=== PATIENT | male | born 1960 | race African-American/Black ===

== ENCOUNTER 2021-10-29 11:01 | Inpatient (IN) ==
[2021-10-29 11:48] LABS: Basophils % 0.1 % (0.0-0.8); Hematocrit 45.7 VOL% (42.0-52.0); Hemoglobin 15.9 GM/DL (14.0-18.0); Immature Granulocytes % 0.5 %; Immature Granulocytes Absolute 0.06 #; Lymphocytes % 16.4 % (21.2-54.2); Mean Corpuscular HGB Conc 34.8 GM/DL (32-36); Mean Corpuscular Volume 82.6 FL (87-102); Mean Platelet Volume 10.7 FL (9.6-12.0); Monocytes # 1.1 10*3/uL (0.11-0.8); NRBC # 0.02 10*3/uL; Platelet Count 134 T/CUMM (130-400); Red Blood Count 5.53 MC/CUMM (3.8-5.5); Red Cell Distribution Width 14.6 % (9.3-17.3)
[2021-10-29 12:16] LABS: Thyroid Stimulating Hormone 3.99 uIU/ml (0.358-3.74)
[2021-10-29 12:27] LABS: Alanine Aminotransferase 155 U/L (16-61); Albumin 2.9 G/DL (3.4-5.0); Alkaline Phosphatase 90 U/L (45-117); Aspartate Amino Transferase 208 U/L (0-37); Blood Urea Nitrogen 42 MG/DL (7-18); Calcium 9.8 MG/DL (8.5-10.1); Carbon Dioxide 22 MMOL/L (21-32); Chloride 95 MMOL/L (98-107); Glucose 110 MG/DL (74-106); Osmolality,Calculated 277.4 MOS/KG (273-304); Potassium 4.9 MMOL/L (3.5-5.1); Sodium 133 MMOL/L (136-145); Total Protein 6.3 G/DL (6.4-8.2)
[2021-10-29 12:40] LABS: INR 2.3; Partial Thromboplastin Time 29.2 SECS (23.7-32.9)
[2021-10-29] MEDS ORDERED: FUROSEMIDE 40 MG/4 ML VIAL IV STA (12:47)
[2021-10-29] MEDS ORDERED: SODIUM CHLORIDE 0.9% 1,000 ML IV STA (14:55)
[2021-10-29 15:23] LABS: Arterial Base Excess iSTAT 4 MMOL/L (-2.5-2.5); Arterial Bicarbonate iSTAT 26.7 MMOL/L (20-26); Arterial O2 Saturation iSTAT 94 % (95-100); Arterial PCO2 iSTAT 34 MM HG (35-48); Arterial PO2 iSTAT 65 MM HG (80-95); Arterial Total CO2 iSTAT 28 MMO/L (23-27); Arterial pH iSTAT 7.499 (7.35-7.45)
[2021-10-29] MEDS ORDERED: GLUCAGON 1 MG VIAL IM PRN (15:32)
[2021-10-29] MEDS ORDERED: ONDANSETRON 4 MG/2 ML VIAL IV PRN (15:32)
[2021-10-29] MEDS ORDERED: ACETAMINOPHEN 325 MG TABLET PO PRN (15:32)
[2021-10-29] MEDS ORDERED: ALBUTEROL 2.5 MG/3 ML NEB RESP TX PRN (15:32)
[2021-10-29 16:28] LABS: Barbiturates Screen,Urine Negative (Negative); Benzodiazepines Screen,Urine Negative (Negative); Cannabinoid Screen,Urine Negative (Negative); Opiate Screen,Urine Negative (Negative); Phencyclidine Screen,Urine Negative (Negative)
[2021-10-29 16:31] LABS: Bacteria,Urine Occasional /HPF (Few); Hyaline Casts,Urine 30 /LPF (0-3); Mucus,Urine Occasional /LPF (Occasional); Squamous Epithelial Cell,Urine Occasional /HPF (0-10)
[2021-10-29 16:34] LABS: Bilirubin,Urine Small mg/dL (Negative); Blood, Urine Trace mg/dL (Negative); Glucose,Urine (UA) 100 mg/dL (Negative); Ketones,Urine Negative (Negative); Nitrite,Urine Negative (Negative); Protein,Urine Trace mg/dL (Negative); Urine Appearance Clear (Clear); Urine Color Yellow (Yellow)
[2021-10-29] MEDS: FUROSEMIDE 40 MG/4 ML VIAL IV SCH (17:08)
[2021-10-29] MEDS: carvediloL 3.125 MG TABLET PO SCH (17:09)
[2021-10-29] MEDS ORDERED: DILTIAZEM 25 MG/5 ML VIAL IV ONE (18:30)
[2021-10-29] MEDS ORDERED: LORazepam 1 MG TABLET ONE (20:27)
[2021-10-29] MEDS: LORazepam 1 MG TABLET PO PRN (20:35)
[2021-10-30] MEDS ORDERED: FUROSEMIDE 40 MG/4 ML VIAL IV ONE (00:04)
[2021-10-30 03:53] LABS: PT Patient Result 20.9 SECS (10.1-12.1)
[2021-10-30 04:14] LABS: Risk Ratio 4.1; VLDL Cholesterol 18.4 MG/DL
[2021-10-30 04:45] LABS: Hepatitis B Core IgM Quant 0.14 Index; Hepatitis B Surface Ag Quant < 0.10 Index; Hepatitis B Surface Ag Result Non-Reactive (NonReactive); Hepatitis C Virus Ab Quant 0.03 Index; Hepatitis C Virus Ab Result Non-Reactive (NonReactive)
[2021-10-30] MEDS: FUROSEMIDE 40 MG/4 ML VIAL IV SCH ×2 (08:01→16:04)
[2021-10-30] MEDS: carvediloL 3.125 MG TABLET PO SCH ×2 (08:01→16:04)
[2021-10-30] MEDS: PANTOPRAZOLE 40 MG TABLET PO SCH (08:01)
[2021-10-30 08:25] LABS: Basophils % 0.1 % (0.0-0.8); Hematocrit 42.1 VOL% (42.0-52.0); Hemoglobin 14.8 GM/DL (14.0-18.0); Immature Granulocytes % 0.5 %; Immature Granulocytes Absolute 0.05 #; Lymphocytes # 1.4 10*3/uL (1.4-4.0); Lymphocytes % 13.2 % (21.2-54.2); Mean Corpuscular HGB Conc 35.2 GM/DL (32-36); Mean Corpuscular Volume 82.1 FL (87-102); Mean Platelet Volume 10.6 FL (9.6-12.0); Monocytes % 9.2 % (1.7-12.7); NRBC # 0.02 10*3/uL; Platelet Count 113 T/CUMM (130-400); Red Blood Count 5.13 MC/CUMM (3.8-5.5); Red Cell Distribution Width 14.9 % (9.3-17.3); White Blood Count 10.6 T/CUMM (4-12)
[2021-10-30 08:49] LABS: Albumin 2.8 G/DL (3.4-5.0); Bilirubin,Total 4.7 MG/DL (0.20-1.00); Calcium 9.5 MG/DL (8.5-10.1); Osmolality,Calculated 279.4 MOS/KG (273-304); Potassium 3.8 MMOL/L (3.5-5.1)
[2021-10-30 08:50] LABS: Arterial Base Excess iSTAT 5 MMOL/L (-2.5-2.5); Arterial O2 Saturation iSTAT 98 % (95-100); Arterial PCO2 iSTAT 51 MM HG (35-48); Arterial PO2 iSTAT 105 MM HG (80-95); Arterial Total CO2 iSTAT 33 MMO/L (23-27); Arterial pH iSTAT 7.389 (7.35-7.45)
[2021-10-30] MEDS ORDERED: ASPIRIN EC 81 MG TABLET PO SCH (09:00)
[2021-10-30] MEDS: ALBUTEROL/IPRATROPIUM 3 ML NEB RESP TX SCH ×2 (13:20→18:56)
[2021-10-30] MEDS ORDERED: APIXABAN 5 MG TABLET PO SCH (21:00)
[2021-10-30] MEDS: LORazepam 1 MG TABLET PO PRN (21:48)
[2021-10-30] MEDS: SPIRONOLACTONE 25 MG TABLET PO SCH (22:36)
[2021-10-31] MEDS: ALBUTEROL/IPRATROPIUM 3 ML NEB RESP TX SCH ×5 (00:27→19:30)
[2021-10-31 07:33] LABS: Basophils % 0.1 % (0.0-0.8); Eosinophils % 0.1 % (0.00-10.9); Hematocrit 39.8 VOL% (42.0-52.0); Immature Granulocytes % 0.4 %; Immature Granulocytes Absolute 0.04 #; Lymphocytes # 1.3 10*3/uL (1.4-4.0); Lymphocytes % 12.5 % (21.2-54.2); Mean Corpuscular HGB Conc 35.2 GM/DL (32-36); Mean Corpuscular Volume 82.6 FL (87-102); Mean Platelet Volume 10.8 FL (9.6-12.0); Monocytes # 0.9 10*3/uL (0.11-0.8); Monocytes % 8.6 % (1.7-12.7); NRBC # 0.02 10*3/uL; Neutrophils % 78.3 % (38.7-73.9); Red Blood Count 4.82 MC/CUMM (3.8-5.5); Red Cell Distribution Width 15.2 % (9.3-17.3)
[2021-10-31 07:38] LABS: Platelet Count 98 T/CUMM (130-400)
[2021-10-31 07:40] LABS: INR 1.6; PT Patient Result 17.1 SECS (10.1-12.1); Partial Thromboplastin Time 29.9 SECS (23.7-32.9)
[2021-10-31 07:50] LABS: Albumin 2.5 G/DL (3.4-5.0); Bilirubin,Total 3.4 MG/DL (0.20-1.00); Calcium 8.8 MG/DL (8.5-10.1); Osmolality,Calculated 279.2 MOS/KG (273-304); Potassium 3.6 MMOL/L (3.5-5.1); Total Protein 5.6 G/DL (6.4-8.2)
[2021-10-31] MEDS: carvediloL 3.125 MG TABLET PO SCH (08:13)
[2021-10-31] MEDS: SPIRONOLACTONE 25 MG TABLET PO SCH ×2 (08:13→20:10)
[2021-10-31] MEDS: FUROSEMIDE 40 MG/4 ML VIAL IV SCH ×3 (08:13→15:03)
[2021-10-31] MEDS: PANTOPRAZOLE 40 MG TABLET PO SCH (08:14)
[2021-10-31] MEDS ORDERED: METOPROLOL TARTRATE 5 MG/5 ML VIAL IV ONE (09:06)
[2021-10-31] MEDS: LORazepam 1 MG TABLET PO PRN (10:00)
[2021-10-31 10:08] LABS: Hepatitis B Core IgM Quant < 0.05 Index; Hepatitis B Surface Ag Quant 0.34 Index; Hepatitis B Surface Ag Result Non-Reactive (NonReactive); Hepatitis C Virus Ab Quant 0.07 Index; Hepatitis C Virus Ab Result Non-Reactive (NonReactive)
[2021-10-31] MEDS ORDERED: carvediloL 3.125 MG TABLET PO ONE (11:01)
[2021-10-31] MEDS ORDERED: DILTIAZEM 25 MG/5 ML VIAL IV ONE (12:13)
[2021-10-31] MEDS ORDERED: ENOXAPARIN 40 MG/0.4 ML SYRINGE SUBCUT SCH (12:30)
[2021-10-31] MEDS: DILTIAZEM INJ 100 MG in SODIUM CHLORIDE 0.9% 100 ML IV SCH (12:34)
[2021-10-31] MEDS: INSULIN LISPRO 100 UNIT/ML SUBCUT SCH ×3 (12:37→20:11)
[2021-10-31] MEDS ORDERED: DIAZEPAM 10 MG/2 ML SYRINGE IV ONE (13:38)
[2021-10-31 13:53] LABS: Arterial Base Excess iSTAT 3 MMOL/L (-2.5-2.5); Arterial Bicarbonate iSTAT 27.6 MMOL/L (20-26); Arterial O2 Saturation iSTAT 98 % (95-100); Arterial PCO2 iSTAT 40 MM HG (35-48); Arterial PO2 iSTAT 105 MM HG (80-95); Arterial Total CO2 iSTAT 29 MMO/L (23-27); Arterial pH iSTAT 7.451 (7.35-7.45)
[2021-10-31] MEDS: LACTULOSE 20 GM/30 ML UDCUP PO SCH ×2 (19:52→20:10)
[2021-10-31] MEDS: carvediloL 6.25 MG TABLET PO SCH (20:10)
[2021-10-31] MEDS: THIAMINE 100 MG TABLET PO SCH (20:10)
[2021-10-31] MEDS: FOLIC ACID 1 MG TABLET PO SCH (20:10)
[2021-10-31] MEDS: chlordiazePOXIDE 25 MG CAPSULE PO SCH (20:10)
[2021-10-31] MEDS: ASCORBIC ACID 500 MG TABLET PO SCH (20:10)
[2021-10-31] MEDS: DEXTROSE 10% 250 ML BAG IV PRN (20:51)
[2021-10-31 22:04] LABS: Arterial Base Excess iSTAT 4 MMOL/L (-2.5-2.5); Arterial Bicarbonate iSTAT 26.3 MMOL/L (20-26); Arterial O2 Saturation iSTAT 93 % (95-100); Arterial PCO2 iSTAT 33 MM HG (35-48); Arterial PO2 iSTAT 59 MM HG (80-95); Arterial Total CO2 iSTAT 27 MMO/L (23-27); Arterial pH iSTAT 7.515 (7.35-7.45)
[2021-11-01] MEDS: chlordiazePOXIDE 25 MG CAPSULE PO SCH ×4 (00:39→20:00)
[2021-11-01] MEDS: ALBUTEROL/IPRATROPIUM 3 ML NEB RESP TX SCH ×4 (01:20→19:55)
[2021-11-01 03:07] LABS: Arterial Base Excess iSTAT 5 MMOL/L (-2.5-2.5); Arterial Bicarbonate iSTAT 28.2 MMOL/L (20-26); Arterial O2 Saturation iSTAT 100 % (95-100); Arterial PCO2 iSTAT 36 MM HG (35-48); Arterial PO2 iSTAT 320 MM HG (80-95); Arterial Total CO2 iSTAT 29 MMO/L (23-27); Arterial pH iSTAT 7.505 (7.35-7.45)
[2021-11-01 05:41] LABS: INR 1.9; PT Patient Result 20.4 SECS (10.1-12.1)
[2021-11-01 05:48] LABS: Calcium 9.1 MG/DL (8.5-10.1); Osmolality,Calculated 277.4 MOS/KG (273-304)
[2021-11-01 05:52] LABS: Albumin 2.6 G/DL (3.4-5.0); Bilirubin,Direct 3.41 MG/DL (0.0-0.20); Bilirubin,Indirect 1.6 MG/DL (0.0-1.0); Total Protein 5.6 G/DL (6.4-8.2)
[2021-11-01] MEDS: DEXTROSE 10% 250 ML BAG IV PRN (05:54)
[2021-11-01] MEDS: INSULIN LISPRO 100 UNIT/ML SUBCUT SCH ×5 (06:32→20:00)
[2021-11-01 06:41] LABS: Basophils % 0.1 % (0.0-0.8); Hematocrit 40.4 VOL% (42.0-52.0); Hemoglobin 14.2 GM/DL (14.0-18.0); Immature Granulocytes % 0.9 %; Immature Granulocytes Absolute 0.15 #; Lymphocytes # 1.4 10*3/uL (1.4-4.0); Lymphocytes % 8.1 % (21.2-54.2); Mean Corpuscular HGB Conc 35.1 GM/DL (32-36); Mean Corpuscular Volume 84.3 FL (87-102); Mean Platelet Volume 11.6 FL (9.6-12.0); Monocytes # 1.3 10*3/uL (0.11-0.8); Monocytes % 7.4 % (1.7-12.7); NRBC # 0.06 10*3/uL; Neutrophils % 83.5 % (38.7-73.9); Platelet Count 84 T/CUMM (130-400); Red Blood Count 4.79 MC/CUMM (3.8-5.5); Red Cell Distribution Width 15.8 % (9.3-17.3); White Blood Count 17.3 T/CUMM (4-12)
[2021-11-01] MEDS: LACTULOSE 20 GM/30 ML UDCUP PO SCH ×3 (11:41→20:00)
[2021-11-01] MEDS: ASPIRIN EC 81 MG TABLET PO SCH ×2 (11:42→13:43)
[2021-11-01] MEDS: SPIRONOLACTONE 25 MG TABLET PO SCH ×3 (11:42→20:00)
[2021-11-01] MEDS: THIAMINE 100 MG TABLET PO SCH ×3 (11:43→20:00)
[2021-11-01] MEDS: MULTIVITAMIN (BEROCCA) TABLET PO SCH ×2 (11:43→13:41)
[2021-11-01] MEDS: carvediloL 6.25 MG TABLET PO SCH ×3 (11:43→20:00)
[2021-11-01] MEDS: ASCORBIC ACID 500 MG TABLET PO SCH ×3 (11:43→20:00)
[2021-11-01] MEDS: PANTOPRAZOLE 40 MG TABLET PO SCH ×2 (11:43→13:41)
[2021-11-01] MEDS: DILTIAZEM INJ 100 MG in SODIUM CHLORIDE 0.9% 100 ML IV SCH (12:45)
[2021-11-01] MEDS: cefTRIAXone 2,000 MG in SODIUM CHLORIDE 0.9% 100 ML IV SCH (13:43)
[2021-11-01] MEDS: FOLIC ACID 1 MG TABLET PO SCH (20:00)
[2021-11-02] MEDS: ALBUTEROL/IPRATROPIUM 3 ML NEB RESP TX SCH ×4 (00:45→19:25)
[2021-11-02] MEDS: chlordiazePOXIDE 25 MG CAPSULE PO SCH ×4 (01:38→21:32)
[2021-11-02] MEDS: LACTULOSE 20 GM/30 ML UDCUP PO SCH ×5 (01:38→21:53)
[2021-11-02 03:15] LABS: Basophils % 0.1 % (0.0-0.8); Eosinophils % 0.3 % (0.00-10.9); Hematocrit 40.6 VOL% (42.0-52.0); Hemoglobin 14.1 GM/DL (14.0-18.0); Immature Granulocytes % 0.5 %; Immature Granulocytes Absolute 0.05 #; Lymphocytes # 0.8 10*3/uL (1.4-4.0); Lymphocytes % 7.8 % (21.2-54.2); Mean Corpuscular HGB Conc 34.7 GM/DL (32-36); Mean Corpuscular Volume 84.1 FL (87-102); Mean Platelet Volume 10.4 FL (9.6-12.0); Monocytes # 0.9 10*3/uL (0.11-0.8); Monocytes % 7.9 % (1.7-12.7); NRBC # 0.04 10*3/uL; Neutrophils % 83.4 % (38.7-73.9); Platelet Count 96 T/CUMM (130-400); Red Blood Count 4.83 MC/CUMM (3.8-5.5); Red Cell Distribution Width 16.2 % (9.3-17.3); White Blood Count 10.7 T/CUMM (4-12)
[2021-11-02 03:25] LABS: INR 1.5
[2021-11-02 03:38] LABS: Albumin 2.3 G/DL (3.4-5.0); Bilirubin,Total 3.5 MG/DL (0.20-1.00); Calcium 8.7 MG/DL (8.5-10.1); Osmolality,Calculated 290.5 MOS/KG (273-304); Phosphorous 2.9 MG/DL (2.5-4.9); Potassium 3.8 MMOL/L (3.5-5.1); Total Protein 5.4 G/DL (6.4-8.2)
[2021-11-02 03:58] LABS: Arterial Base Excess iSTAT 10 MMOL/L (-2.5-2.5); Arterial Bicarbonate iSTAT 33.6 MMOL/L (20-26); Arterial O2 Saturation iSTAT 97 % (95-100); Arterial PCO2 iSTAT 41 MM HG (35-48); Arterial PO2 iSTAT 83 MM HG (80-95); Arterial Total CO2 iSTAT 35 MMO/L (23-27); Arterial pH iSTAT 7.518 (7.35-7.45)
[2021-11-02] MEDS ORDERED: METOPROLOL TARTRATE 5 MG/5 ML VIAL IV ONE (04:33)
[2021-11-02] MEDS: SPIRONOLACTONE 25 MG TABLET PO SCH ×2 (08:22→21:32)
[2021-11-02] MEDS: INSULIN LISPRO 100 UNIT/ML SUBCUT SCH ×4 (08:22→21:33)
[2021-11-02] MEDS: carvediloL 6.25 MG TABLET PO SCH ×2 (08:22→21:32)
[2021-11-02] MEDS: PANTOPRAZOLE 40 MG TABLET PO SCH (08:22)
[2021-11-02] MEDS: THIAMINE 100 MG TABLET PO SCH ×2 (08:22→21:32)
[2021-11-02] MEDS: MULTIVITAMIN (BEROCCA) TABLET PO SCH (08:22)
[2021-11-02] MEDS: ASCORBIC ACID 500 MG TABLET PO SCH ×2 (08:23→21:32)
[2021-11-02] MEDS: ASPIRIN EC 81 MG TABLET PO SCH (08:38)
[2021-11-02] MEDS ORDERED: POLYETHYLENE GLYCOL POWDER 17 GM PACK PO SCH (09:00)
[2021-11-02] MEDS: DILTIAZEM INJ 100 MG in SODIUM CHLORIDE 0.9% 100 ML IV SCH (12:54)
[2021-11-02] MEDS: cefTRIAXone 2,000 MG in SODIUM CHLORIDE 0.9% 100 ML IV SCH (14:43)
[2021-11-02] MEDS: FOLIC ACID 1 MG TABLET PO SCH (21:32)
[2021-11-03] MEDS: ALBUTEROL/IPRATROPIUM 3 ML NEB RESP TX SCH ×4 (00:35→18:57)
[2021-11-03] MEDS: chlordiazePOXIDE 25 MG CAPSULE PO SCH ×4 (02:06→20:49)
[2021-11-03] MEDS: LACTULOSE 20 GM/30 ML UDCUP PO SCH ×4 (02:07→20:50)
[2021-11-03 06:03] LABS: Basophils % 0.1 % (0.0-0.8); Eosinophils # 0.1 10*3/uL (0.0-0.87); Eosinophils % 1.1 % (0.00-10.9); Hematocrit 39.3 VOL% (42.0-52.0); Hemoglobin 13.7 GM/DL (14.0-18.0); Immature Granulocytes % 0.5 %; Immature Granulocytes Absolute 0.04 #; Lymphocytes # 1.1 10*3/uL (1.4-4.0); Lymphocytes % 13.9 % (21.2-54.2); Mean Corpuscular HGB Conc 34.9 GM/DL (32-36); Mean Platelet Volume 11.6 FL (9.6-12.0); Monocytes # 0.7 10*3/uL (0.11-0.8); Monocytes % 9.3 % (1.7-12.7); NRBC # 0.02 10*3/uL; Neutrophils % 75.1 % (38.7-73.9); Platelet Count 90 T/CUMM (130-400); Red Blood Count 4.68 MC/CUMM (3.8-5.5); Red Cell Distribution Width 16.1 % (9.3-17.3); White Blood Count 7.9 T/CUMM (4-12)
[2021-11-03 06:21] LABS: Calcium 9.4 MG/DL (8.5-10.1); Potassium 3.5 MMOL/L (3.5-5.1)
[2021-11-03] MEDS: INSULIN LISPRO 100 UNIT/ML SUBCUT SCH ×4 (08:35→20:59)
[2021-11-03] MEDS: MULTIVITAMIN (BEROCCA) TABLET PO SCH (09:22)
[2021-11-03] MEDS: ASPIRIN EC 81 MG TABLET PO SCH (09:22)
[2021-11-03] MEDS: SPIRONOLACTONE 25 MG TABLET PO SCH ×2 (09:22→20:50)
[2021-11-03] MEDS: APIXABAN 5 MG TABLET PO SCH ×2 (09:22→20:50)
[2021-11-03] MEDS: carvediloL 6.25 MG TABLET PO SCH ×2 (09:22→20:50)
[2021-11-03] MEDS: PANTOPRAZOLE 40 MG TABLET PO SCH (09:23)
[2021-11-03] MEDS: ASCORBIC ACID 500 MG TABLET PO SCH ×2 (09:23→20:50)
[2021-11-03] MEDS: THIAMINE 100 MG TABLET PO SCH ×2 (09:23→20:50)
[2021-11-03 09:24] LABS: Anisocytosis 1+; Ovalocytes Few; Platelet Estimate Adequate; Target Cells Few
[2021-11-03] MEDS: cefTRIAXone 2,000 MG in SODIUM CHLORIDE 0.9% 100 ML IV SCH (16:19)
[2021-11-03] MEDS: FOLIC ACID 1 MG TABLET PO SCH (20:50)
[2021-11-04] MEDS: ALBUTEROL/IPRATROPIUM 3 ML NEB RESP TX SCH ×4 (00:33→19:13)
[2021-11-04] MEDS: chlordiazePOXIDE 25 MG CAPSULE PO SCH ×4 (02:42→20:46)
[2021-11-04] MEDS: LACTULOSE 20 GM/30 ML UDCUP PO SCH ×4 (02:42→20:46)
[2021-11-04 05:55] LABS: Eosinophils # 0.1 10*3/uL (0.0-0.87); Eosinophils % 1.4 % (0.00-10.9); Hematocrit 41.5 VOL% (42.0-52.0); Hemoglobin 14.2 GM/DL (14.0-18.0); Immature Granulocytes % 0.4 %; Immature Granulocytes Absolute 0.03 #; Lymphocytes # 1.2 10*3/uL (1.4-4.0); Lymphocytes % 17.3 % (21.2-54.2); Mean Corpuscular HGB Conc 34.2 GM/DL (32-36); Mean Corpuscular Volume 84.5 FL (87-102); Mean Platelet Volume 11.9 FL (9.6-12.0); Monocytes # 0.6 10*3/uL (0.11-0.8); Monocytes % 8.8 % (1.7-12.7); NRBC # 0.02 10*3/uL; Neutrophils % 72.1 % (38.7-73.9); Platelet Count 96 T/CUMM (130-400); Red Blood Count 4.91 MC/CUMM (3.8-5.5); Red Cell Distribution Width 16.2 % (9.3-17.3)
[2021-11-04 06:12] LABS: Calcium 9.1 MG/DL (8.5-10.1); Osmolality,Calculated 291.4 MOS/KG (273-304); Potassium 3.6 MMOL/L (3.5-5.1)
[2021-11-04 07:15] LABS: Hypochromia 1+; Platelet Estimate Adequate; Target Cells Slight
[2021-11-04] MEDS: INSULIN LISPRO 100 UNIT/ML SUBCUT SCH ×4 (09:38→20:47)
[2021-11-04] MEDS: ASPIRIN EC 81 MG TABLET PO SCH (09:38)
[2021-11-04] MEDS: SPIRONOLACTONE 25 MG TABLET PO SCH ×2 (09:38→20:46)
[2021-11-04] MEDS: MULTIVITAMIN (BEROCCA) TABLET PO SCH (09:39)
[2021-11-04] MEDS: THIAMINE 100 MG TABLET PO SCH ×2 (09:39→20:47)
[2021-11-04] MEDS: carvediloL 6.25 MG TABLET PO SCH ×2 (09:39→20:47)
[2021-11-04] MEDS: ASCORBIC ACID 500 MG TABLET PO SCH ×2 (09:39→20:46)
[2021-11-04] MEDS: APIXABAN 5 MG TABLET PO SCH ×2 (09:39→20:47)
[2021-11-04] MEDS: PANTOPRAZOLE 40 MG TABLET PO SCH (09:39)
[2021-11-04] MEDS: cefTRIAXone 2,000 MG in SODIUM CHLORIDE 0.9% 100 ML IV SCH (15:23)
[2021-11-04] MEDS: FOLIC ACID 1 MG TABLET PO SCH (20:46)
[2021-11-05] MEDS: ALBUTEROL/IPRATROPIUM 3 ML NEB RESP TX SCH ×4 (00:13→19:16)
[2021-11-05] MEDS: LACTULOSE 20 GM/30 ML UDCUP PO SCH ×4 (02:37→17:51)
[2021-11-05 05:09] LABS: Basophils % 0.1 % (0.0-0.8); Eosinophils # 0.1 10*3/uL (0.0-0.87); Eosinophils % 1.3 % (0.00-10.9); Hematocrit 41.8 VOL% (42.0-52.0); Hemoglobin 14.1 GM/DL (14.0-18.0); Immature Granulocytes % 0.6 %; Immature Granulocytes Absolute 0.04 #; Lymphocytes # 1.2 10*3/uL (1.4-4.0); Lymphocytes % 18.1 % (21.2-54.2); Mean Corpuscular HGB Conc 33.7 GM/DL (32-36); Mean Corpuscular Volume 85.3 FL (87-102); Mean Platelet Volume 11.3 FL (9.6-12.0); Monocytes # 0.6 10*3/uL (0.11-0.8); Monocytes % 8.5 % (1.7-12.7); NRBC # 0.03 10*3/uL; Neutrophils % 71.4 % (38.7-73.9); Platelet Count 112 T/CUMM (130-400); Red Cell Distribution Width 16.6 % (9.3-17.3); White Blood Count 6.7 T/CUMM (4-12)
[2021-11-05 05:14] LABS: INR 1.3; PT Patient Result 14.6 SECS (10.1-12.1)
[2021-11-05 05:23] LABS: Calcium 9.8 MG/DL (8.5-10.1); Osmolality,Calculated 291.3 MOS/KG (273-304); Potassium 3.5 MMOL/L (3.5-5.1)
[2021-11-05 05:31] LABS: Albumin 2.3 G/DL (3.4-5.0); Bilirubin,Direct 1.91 MG/DL (0.0-0.20); Bilirubin,Indirect 0.6 MG/DL (0.0-1.0); Bilirubin,Total 2.5 MG/DL (0.20-1.00); Total Protein 5.9 G/DL (6.4-8.2)
[2021-11-05] MEDS: INSULIN LISPRO 100 UNIT/ML SUBCUT SCH ×4 (09:56→22:15)
[2021-11-05] MEDS: SPIRONOLACTONE 25 MG TABLET PO SCH ×2 (09:57→21:09)
[2021-11-05] MEDS: ASPIRIN EC 81 MG TABLET PO SCH (09:57)
[2021-11-05] MEDS: APIXABAN 5 MG TABLET PO SCH ×2 (09:57→21:11)
[2021-11-05] MEDS: MULTIVITAMIN (BEROCCA) TABLET PO SCH (09:57)
[2021-11-05] MEDS: carvediloL 6.25 MG TABLET PO SCH ×2 (09:57→21:11)
[2021-11-05] MEDS: PANTOPRAZOLE 40 MG TABLET PO SCH (09:58)
[2021-11-05] MEDS: ASCORBIC ACID 500 MG TABLET PO SCH ×2 (09:58→21:10)
[2021-11-05] MEDS: THIAMINE 100 MG TABLET PO SCH ×2 (09:58→21:11)
[2021-11-05] MEDS: chlordiazePOXIDE 25 MG CAPSULE PO SCH ×3 (09:59→21:11)
[2021-11-05] MEDS: cefTRIAXone 2,000 MG in SODIUM CHLORIDE 0.9% 100 ML IV SCH (14:04)
[2021-11-05] MEDS: FOLIC ACID 1 MG TABLET PO SCH (21:09)
[2021-11-05] MEDS ORDERED: DILTIAZEM 25 MG/5 ML VIAL IV ONE ×2 (23:20→23:45)
[2021-11-06] MEDS: LACTULOSE 20 GM/30 ML UDCUP PO SCH ×4 (00:08→17:05)
[2021-11-06] MEDS: ALBUTEROL/IPRATROPIUM 3 ML NEB RESP TX SCH ×4 (00:14→19:50)
[2021-11-06 05:36] LABS: Basophils % 0.1 % (0.0-0.8); Eosinophils % 0.1 % (0.00-10.9); Hematocrit 45.2 VOL% (42.0-52.0); Hemoglobin 14.4 GM/DL (14.0-18.0); Immature Granulocytes % 0.6 %; Immature Granulocytes Absolute 0.05 #; Lymphocytes # 0.7 10*3/uL (1.4-4.0); Lymphocytes % 8.8 % (21.2-54.2); Mean Corpuscular HGB Conc 31.9 GM/DL (32-36); Mean Corpuscular Volume 89.3 FL (87-102); Mean Platelet Volume 10.2 FL (9.6-12.0); Monocytes # 0.7 10*3/uL (0.11-0.8); Monocytes % 8.3 % (1.7-12.7); NRBC # 0.02 10*3/uL; Neutrophils % 82.1 % (38.7-73.9); Platelet Count 120 T/CUMM (130-400); Red Blood Count 5.06 MC/CUMM (3.8-5.5); Red Cell Distribution Width 17.2 % (9.3-17.3); White Blood Count 8.1 T/CUMM (4-12)
[2021-11-06 05:58] LABS: Albumin 2.1 G/DL (3.4-5.0); Bilirubin,Total 2.9 MG/DL (0.20-1.00); Calcium 9.1 MG/DL (8.5-10.1); Potassium 4.1 MMOL/L (3.5-5.1); Total Protein 6.1 G/DL (6.4-8.2)
[2021-11-06] MEDS: INSULIN LISPRO 100 UNIT/ML SUBCUT SCH ×4 (10:15→21:13)
[2021-11-06] MEDS: chlordiazePOXIDE 25 MG CAPSULE PO SCH ×3 (10:16→21:12)
[2021-11-06] MEDS: MULTIVITAMIN (BEROCCA) TABLET PO SCH (10:16)
[2021-11-06] MEDS: SPIRONOLACTONE 25 MG TABLET PO SCH ×2 (10:16→21:12)
[2021-11-06] MEDS: APIXABAN 5 MG TABLET PO SCH ×2 (10:17→21:12)
[2021-11-06] MEDS: THIAMINE 100 MG TABLET PO SCH ×2 (10:17→21:12)
[2021-11-06] MEDS: ASPIRIN EC 81 MG TABLET PO SCH (10:17)
[2021-11-06] MEDS: PANTOPRAZOLE 40 MG TABLET PO SCH (10:17)
[2021-11-06] MEDS: ASCORBIC ACID 500 MG TABLET PO SCH ×2 (10:17→21:11)
[2021-11-06] MEDS: carvediloL 6.25 MG TABLET PO SCH (10:18)
[2021-11-06] MEDS: DIGOXIN 0.5 MG/2 ML AMP IV SCH ×3 (10:55→21:13)
[2021-11-06] MEDS: cefTRIAXone 2,000 MG in SODIUM CHLORIDE 0.9% 100 ML IV SCH (15:36)
[2021-11-06] MEDS: carvediloL 3.125 MG TABLET PO SCH (21:12)
[2021-11-06] MEDS: FOLIC ACID 1 MG TABLET PO SCH (21:12)
[2021-11-07] MEDS: LACTULOSE 20 GM/30 ML UDCUP PO SCH ×4 (00:37→17:20)
[2021-11-07] MEDS: ALBUTEROL/IPRATROPIUM 3 ML NEB RESP TX SCH ×4 (00:40→19:46)
[2021-11-07] MEDS: DIGOXIN 0.5 MG/2 ML AMP IV SCH (03:13)
[2021-11-07 05:54] LABS: Albumin 2.2 G/DL (3.4-5.0); Bilirubin,Total 2.2 MG/DL (0.20-1.00); Calcium 9.8 MG/DL (8.5-10.1); Osmolality,Calculated 295.7 MOS/KG (273-304); Potassium 4.1 MMOL/L (3.5-5.1)
[2021-11-07] MEDS: INSULIN LISPRO 100 UNIT/ML SUBCUT SCH ×4 (07:36→21:15)
[2021-11-07] MEDS: MULTIVITAMIN (BEROCCA) TABLET PO SCH (08:44)
[2021-11-07] MEDS: ASPIRIN EC 81 MG TABLET PO SCH (08:44)
[2021-11-07] MEDS: PANTOPRAZOLE 40 MG TABLET PO SCH (08:44)
[2021-11-07] MEDS: THIAMINE 100 MG TABLET PO SCH ×2 (08:44→21:15)
[2021-11-07] MEDS: APIXABAN 5 MG TABLET PO SCH ×2 (08:44→21:15)
[2021-11-07] MEDS: carvediloL 3.125 MG TABLET PO SCH ×2 (08:44→21:15)
[2021-11-07] MEDS: chlordiazePOXIDE 25 MG CAPSULE PO SCH (08:44)
[2021-11-07] MEDS: ASCORBIC ACID 500 MG TABLET PO SCH ×2 (08:44→21:15)
[2021-11-07] MEDS: SPIRONOLACTONE 25 MG TABLET PO SCH ×2 (08:44→21:15)
[2021-11-07] MEDS: cefTRIAXone 2,000 MG in SODIUM CHLORIDE 0.9% 100 ML IV SCH (14:14)
[2021-11-07] MEDS: DIGOXIN 0.125 MG TABLET PO SCH (14:14)
[2021-11-07] MEDS: FOLIC ACID 1 MG TABLET PO SCH (21:15)
[2021-11-08] MEDS: LACTULOSE 20 GM/30 ML UDCUP PO SCH ×5 (00:50→17:10)
[2021-11-08] MEDS: ALBUTEROL/IPRATROPIUM 3 ML NEB RESP TX SCH ×4 (01:40→19:25)
[2021-11-08 05:42] LABS: Basophils % 0.4 % (0.0-0.8); Eosinophils # 0.2 10*3/uL (0.0-0.87); Eosinophils % 2.8 % (0.00-10.9); Hematocrit 44.4 VOL% (42.0-52.0); Hemoglobin 14.4 GM/DL (14.0-18.0); Immature Granulocytes % 0.6 %; Immature Granulocytes Absolute 0.03 #; Lymphocytes # 0.7 10*3/uL (1.4-4.0); Lymphocytes % 12.9 % (21.2-54.2); Mean Corpuscular HGB Conc 32.4 GM/DL (32-36); Mean Corpuscular Volume 88.3 FL (87-102); Monocytes # 0.4 10*3/uL (0.11-0.8); Neutrophils % 76.3 % (38.7-73.9); Platelet Count 160 T/CUMM (130-400); Red Blood Count 5.03 MC/CUMM (3.8-5.5); Red Cell Distribution Width 17.1 % (9.3-17.3); White Blood Count 5.4 T/CUMM (4-12)
[2021-11-08 05:58] LABS: Albumin 2.1 G/DL (3.4-5.0); Calcium 9.5 MG/DL (8.5-10.1); Osmolality,Calculated 297.3 MOS/KG (273-304); Potassium 4.1 MMOL/L (3.5-5.1)
[2021-11-08] MEDS: INSULIN LISPRO 100 UNIT/ML SUBCUT SCH ×4 (08:59→22:00)
[2021-11-08] MEDS: SPIRONOLACTONE 25 MG TABLET PO SCH ×2 (09:25→21:22)
[2021-11-08] MEDS: APIXABAN 5 MG TABLET PO SCH ×2 (09:25→21:21)
[2021-11-08] MEDS: carvediloL 3.125 MG TABLET PO SCH (09:25)
[2021-11-08] MEDS: ASCORBIC ACID 500 MG TABLET PO SCH ×2 (09:25→21:21)
[2021-11-08] MEDS: PANTOPRAZOLE 40 MG TABLET PO SCH (09:25)
[2021-11-08] MEDS: ASPIRIN EC 81 MG TABLET PO SCH (09:25)
[2021-11-08] MEDS: MULTIVITAMIN (BEROCCA) TABLET PO SCH (09:25)
[2021-11-08] MEDS: THIAMINE 100 MG TABLET PO SCH ×2 (09:25→21:22)
[2021-11-08] MEDS: carvediloL 6.25 MG TABLET PO SCH ×2 (10:59→21:22)
[2021-11-08] MEDS: DIGOXIN 0.125 MG TABLET PO SCH (12:18)
[2021-11-08] MEDS: FOLIC ACID 1 MG TABLET PO SCH (21:22)
[2021-11-09] MEDS: ALBUTEROL/IPRATROPIUM 3 ML NEB RESP TX SCH ×4 (00:35→19:20)
[2021-11-09] MEDS: LACTULOSE 20 GM/30 ML UDCUP PO SCH ×4 (01:10→18:40)
[2021-11-09 05:29] LABS: Albumin 2.3 G/DL (3.4-5.0); Bilirubin,Total 1.8 MG/DL (0.20-1.00); Calcium 9.5 MG/DL (8.5-10.1); Osmolality,Calculated 298.1 MOS/KG (273-304); Potassium 4.1 MMOL/L (3.5-5.1); Total Protein 5.7 G/DL (6.4-8.2)
[2021-11-09] MEDS: INSULIN LISPRO 100 UNIT/ML SUBCUT SCH ×4 (11:24→21:41)
[2021-11-09] MEDS: THIAMINE 100 MG TABLET PO SCH ×2 (11:59→21:40)
[2021-11-09] MEDS: carvediloL 6.25 MG TABLET PO SCH ×2 (11:59→21:40)
[2021-11-09] MEDS: SPIRONOLACTONE 25 MG TABLET PO SCH ×2 (11:59→21:40)
[2021-11-09] MEDS: PANTOPRAZOLE 40 MG TABLET PO SCH (11:59)
[2021-11-09] MEDS: ASPIRIN EC 81 MG TABLET PO SCH (11:59)
[2021-11-09] MEDS: ASCORBIC ACID 500 MG TABLET PO SCH ×2 (11:59→21:39)
[2021-11-09] MEDS: APIXABAN 5 MG TABLET PO SCH ×2 (11:59→21:40)
[2021-11-09] MEDS: MULTIVITAMIN (BEROCCA) TABLET PO SCH (11:59)
[2021-11-09] MEDS: DIGOXIN 0.125 MG TABLET PO SCH (13:44)
[2021-11-09] MEDS ORDERED: DEXTROSE 5% 1,000 ML IV SCH (15:00)
[2021-11-09] MEDS: FOLIC ACID 1 MG TABLET PO SCH (21:40)
[2021-11-10] MEDS: ALBUTEROL/IPRATROPIUM 3 ML NEB RESP TX SCH ×5 (00:17→23:32)
[2021-11-10] MEDS: LACTULOSE 20 GM/30 ML UDCUP PO SCH ×4 (00:22→17:30)
[2021-11-10 07:12] LABS: Basophils % 0.4 % (0.0-0.8); Eosinophils # 0.1 10*3/uL (0.0-0.87); Hematocrit 45.9 VOL% (42.0-52.0); Hemoglobin 14.4 GM/DL (14.0-18.0); Immature Granulocytes % 0.2 %; Immature Granulocytes Absolute 0.01 #; Lymphocytes # 0.8 10*3/uL (1.4-4.0); Lymphocytes % 16.8 % (21.2-54.2); Mean Corpuscular HGB Conc 31.4 GM/DL (32-36); Mean Corpuscular Volume 89.8 FL (87-102); Mean Platelet Volume 9.4 FL (9.6-12.0); Monocytes # 0.3 10*3/uL (0.11-0.8); Monocytes % 7.2 % (1.7-12.7); Neutrophils % 72.4 % (38.7-73.9); Platelet Count 159 T/CUMM (130-400); Red Blood Count 5.11 MC/CUMM (3.8-5.5); Red Cell Distribution Width 17.5 % (9.3-17.3); White Blood Count 4.7 T/CUMM (4-12)
[2021-11-10 07:30] LABS: Albumin 2.2 G/DL (3.4-5.0); Bilirubin,Total 1.5 MG/DL (0.20-1.00); Calcium 9.6 MG/DL (8.5-10.1); Potassium 3.7 MMOL/L (3.5-5.1); Total Protein 5.9 G/DL (6.4-8.2)
[2021-11-10 07:45] LABS: Osmolality,Calculated 299.1 MOS/KG (273-304)
[2021-11-10] MEDS: carvediloL 6.25 MG TABLET PO SCH (09:41)
[2021-11-10] MEDS: THIAMINE 100 MG TABLET PO SCH ×2 (09:43→20:56)
[2021-11-10] MEDS: SPIRONOLACTONE 25 MG TABLET PO SCH ×2 (09:43→20:55)
[2021-11-10] MEDS: MULTIVITAMIN (BEROCCA) TABLET PO SCH (09:43)
[2021-11-10] MEDS: INSULIN LISPRO 100 UNIT/ML SUBCUT SCH ×4 (09:44→20:56)
[2021-11-10] MEDS: ASCORBIC ACID 500 MG TABLET PO SCH ×2 (09:44→20:56)
[2021-11-10] MEDS: ASPIRIN EC 81 MG TABLET PO SCH (09:44)
[2021-11-10] MEDS: APIXABAN 5 MG TABLET PO SCH ×2 (09:44→20:56)
[2021-11-10] MEDS: PANTOPRAZOLE 40 MG TABLET PO SCH (09:44)
[2021-11-10] MEDS ORDERED: DEXTROSE 5% 1,000 ML IV SCH (10:33)
[2021-11-10] MEDS ORDERED: POTASSIUM CHLORIDE 20 MEQ TABLET PO ONE (12:17)
[2021-11-10] MEDS: DIGOXIN 0.125 MG TABLET PO SCH (14:01)
[2021-11-10] MEDS: carvediloL 12.5 MG TABLET PO SCH (20:56)
[2021-11-10] MEDS: FOLIC ACID 1 MG TABLET PO SCH (20:56)
[2021-11-11] MEDS: LACTULOSE 20 GM/30 ML UDCUP PO SCH ×4 (01:05→18:10)
[2021-11-11 06:09] LABS: Albumin 2.1 G/DL (3.4-5.0); Bilirubin,Total 1.5 MG/DL (0.20-1.00); Calcium 9.2 MG/DL (8.5-10.1); Potassium 4.3 MMOL/L (3.5-5.1); Total Protein 5.9 G/DL (6.4-8.2)
[2021-11-11] MEDS: ALBUTEROL/IPRATROPIUM 3 ML NEB RESP TX SCH ×4 (07:30→23:57)
[2021-11-11] MEDS: INSULIN LISPRO 100 UNIT/ML SUBCUT SCH ×4 (08:58→21:45)
[2021-11-11] MEDS: MULTIVITAMIN (BEROCCA) TABLET PO SCH (09:58)
[2021-11-11] MEDS: SPIRONOLACTONE 25 MG TABLET PO SCH (09:58)
[2021-11-11] MEDS: APIXABAN 5 MG TABLET PO SCH ×2 (09:58→21:44)
[2021-11-11] MEDS: carvediloL 12.5 MG TABLET PO SCH ×2 (09:58→21:44)
[2021-11-11] MEDS: ASPIRIN EC 81 MG TABLET PO SCH (09:58)
[2021-11-11] MEDS: THIAMINE 100 MG TABLET PO SCH ×2 (09:58→21:45)
[2021-11-11] MEDS: PANTOPRAZOLE 40 MG TABLET PO SCH (09:58)
[2021-11-11] MEDS: ASCORBIC ACID 500 MG TABLET PO SCH ×2 (09:58→21:44)
[2021-11-11] MEDS: DIGOXIN 0.125 MG TABLET PO SCH (12:02)
[2021-11-11] MEDS: DEXTROSE 5% 1,000 ML IV SCH (12:03)
[2021-11-11] MEDS: FOLIC ACID 1 MG TABLET PO SCH (21:45)
[2021-11-12] MEDS: LACTULOSE 20 GM/30 ML UDCUP PO SCH ×4 (06:22→17:28)
[2021-11-12] MEDS: ALBUTEROL/IPRATROPIUM 3 ML NEB RESP TX SCH ×3 (07:15→19:53)
[2021-11-12] MEDS: DEXTROSE 5% 1,000 ML IV SCH ×3 (08:33→21:25)
[2021-11-12] MEDS: INSULIN LISPRO 100 UNIT/ML SUBCUT SCH ×4 (08:33→21:11)
[2021-11-12 08:47] LABS: Basophils % 0.3 % (0.0-0.8); Eosinophils # 0.1 10*3/uL (0.0-0.87); Eosinophils % 1.3 % (0.00-10.9); Hematocrit 42.6 VOL% (42.0-52.0); Hemoglobin 13.7 GM/DL (14.0-18.0); Immature Granulocytes % 0.1 %; Immature Granulocytes Absolute 0.01 #; Lymphocytes # 0.9 10*3/uL (1.4-4.0); Lymphocytes % 12.4 % (21.2-54.2); Mean Corpuscular HGB Conc 32.2 GM/DL (32-36); Mean Corpuscular Volume 88.6 FL (87-102); Mean Platelet Volume 9.7 FL (9.6-12.0); Monocytes # 0.5 10*3/uL (0.11-0.8); Monocytes % 6.5 % (1.7-12.7); Neutrophils % 79.4 % (38.7-73.9); Platelet Count 153 T/CUMM (130-400); Red Blood Count 4.81 MC/CUMM (3.8-5.5); Red Cell Distribution Width 16.8 % (9.3-17.3)
[2021-11-12 09:04] LABS: Calcium 8.9 MG/DL (8.5-10.1); Potassium 4.1 MMOL/L (3.5-5.1)
[2021-11-12 09:19] LABS: Osmolality,Calculated 291.4 MOS/KG (273-304)
[2021-11-12] MEDS: MULTIVITAMIN (BEROCCA) TABLET PO SCH (10:07)
[2021-11-12] MEDS: PANTOPRAZOLE 40 MG TABLET PO SCH (10:07)
[2021-11-12] MEDS: THIAMINE 100 MG TABLET PO SCH ×2 (10:07→21:18)
[2021-11-12] MEDS: carvediloL 12.5 MG TABLET PO SCH ×2 (10:07→21:18)
[2021-11-12] MEDS: ASPIRIN EC 81 MG TABLET PO SCH (10:07)
[2021-11-12] MEDS: ASCORBIC ACID 500 MG TABLET PO SCH ×2 (10:07→21:17)
[2021-11-12] MEDS: APIXABAN 5 MG TABLET PO SCH ×2 (10:07→21:18)
[2021-11-12] MEDS: DIGOXIN 0.125 MG TABLET PO SCH (13:02)
[2021-11-12] MEDS: FOLIC ACID 1 MG TABLET PO SCH (21:17)
[2021-11-13] MEDS: ALBUTEROL/IPRATROPIUM 3 ML NEB RESP TX SCH ×4 (00:40→19:50)
[2021-11-13] MEDS: LACTULOSE 20 GM/30 ML UDCUP PO SCH ×5 (07:03→23:51)
[2021-11-13] MEDS: INSULIN LISPRO 100 UNIT/ML SUBCUT SCH ×4 (08:35→21:32)
[2021-11-13] MEDS: THIAMINE 100 MG TABLET PO SCH ×3 (10:41→21:32)
[2021-11-13] MEDS: APIXABAN 5 MG TABLET PO SCH ×3 (10:41→21:31)
[2021-11-13] MEDS: PANTOPRAZOLE 40 MG TABLET PO SCH ×2 (10:41→12:53)
[2021-11-13] MEDS: carvediloL 12.5 MG TABLET PO SCH ×3 (10:41→21:32)
[2021-11-13] MEDS: MULTIVITAMIN (BEROCCA) TABLET PO SCH ×2 (10:41→12:53)
[2021-11-13] MEDS: ASPIRIN EC 81 MG TABLET PO SCH ×2 (10:41→12:53)
[2021-11-13] MEDS: ASCORBIC ACID 500 MG TABLET PO SCH ×3 (10:41→21:31)
[2021-11-13] MEDS: DIGOXIN 0.125 MG TABLET PO SCH ×2 (12:53→13:05)
[2021-11-13] MEDS: DEXTROSE 5% 1,000 ML IV SCH ×2 (16:15→23:52)
[2021-11-13] MEDS: FOLIC ACID 1 MG TABLET PO SCH (21:32)
[2021-11-14] MEDS: ALBUTEROL/IPRATROPIUM 3 ML NEB RESP TX SCH ×4 (00:25→20:33)
[2021-11-14] MEDS: LACTULOSE 20 GM/30 ML UDCUP PO SCH ×3 (06:55→17:48)
[2021-11-14] MEDS: ASCORBIC ACID 500 MG TABLET PO SCH ×2 (09:02→21:39)
[2021-11-14] MEDS: carvediloL 12.5 MG TABLET PO SCH ×2 (09:02→21:39)
[2021-11-14] MEDS: THIAMINE 100 MG TABLET PO SCH ×2 (09:02→21:39)
[2021-11-14] MEDS: PANTOPRAZOLE 40 MG TABLET PO SCH (09:02)
[2021-11-14] MEDS: APIXABAN 5 MG TABLET PO SCH ×2 (09:03→21:40)
[2021-11-14] MEDS: ASPIRIN EC 81 MG TABLET PO SCH (09:03)
[2021-11-14] MEDS: MULTIVITAMIN (BEROCCA) TABLET PO SCH (09:03)
[2021-11-14] MEDS: INSULIN LISPRO 100 UNIT/ML SUBCUT SCH ×4 (09:03→21:00)
[2021-11-14] MEDS: DEXTROSE 5% 1,000 ML IV SCH (12:04)
[2021-11-14] MEDS: DIGOXIN 0.125 MG TABLET PO SCH (15:56)
[2021-11-14] MEDS: FOLIC ACID 1 MG TABLET PO SCH (21:39)
[2021-11-15] MEDS: ALBUTEROL/IPRATROPIUM 3 ML NEB RESP TX SCH ×3 (01:21→13:50)
[2021-11-15] MEDS: LACTULOSE 20 GM/30 ML UDCUP PO SCH ×3 (03:14→11:32)
[2021-11-15] MEDS: DEXTROSE 5% 1,000 ML IV SCH ×2 (03:19→11:36)
[2021-11-15] MEDS: APIXABAN 5 MG TABLET PO SCH (08:10)
[2021-11-15] MEDS: ASCORBIC ACID 500 MG TABLET PO SCH (08:10)
[2021-11-15] MEDS: MULTIVITAMIN (BEROCCA) TABLET PO SCH (08:10)
[2021-11-15] MEDS: PANTOPRAZOLE 40 MG TABLET PO SCH (08:11)
[2021-11-15] MEDS: THIAMINE 100 MG TABLET PO SCH (08:11)
[2021-11-15] MEDS: carvediloL 12.5 MG TABLET PO SCH (08:11)
[2021-11-15] MEDS: ASPIRIN EC 81 MG TABLET PO SCH (08:11)
[2021-11-15] MEDS: INSULIN LISPRO 100 UNIT/ML SUBCUT SCH ×2 (08:13→14:00)
[2021-11-15] MEDS: DIGOXIN 0.125 MG TABLET PO SCH (15:30)
[2021-11-15 17:47] VITALS: BP 112/94
== END 2021-11-15 17:08 | disposition hospice, home (50) | DRG 291 ==
LOC: N.ED 11:01 → SUATTDRO 15:30 → N.EDINP 15:30 → N.TELES 16:14 → N.CC 19:34 → N.TELEN 11-08 11:27
PROVIDERS: ADMIT Family Medicine; ATTEND Hospitalist